=== PATIENT | female | born 1990 | race Caucasian/White ===

== ENCOUNTER 2020-09-19 13:48 | Outpatient (CLI) | payer OTHER, SELFPAY ==
[2020-09-20 18:38] LABS: SARS-CoV-2 RNA PCR Negative
== END 2020-09-19 13:49 | disposition home or self-care (01) ==
LOC: CHSLAB 13:51
PROVIDERS: PCP Family Medicine; Visit Provider Family Medicine
DX: Z20.828 Contact with and (suspected) exposure to other viral communicable diseases (principal)
CPT/HCPCS: 87635; C9803; U0003

== ENCOUNTER 2022-10-01 12:47 | Outpatient (CLI) | payer OTHER, SELFPAY ==
[2022-10-01 13:56] LABS: Hematocrit 41.2 % (37.0-47.0); Hemoglobin 13.5 g/dL (12.0-15.0)
== END 2022-10-01 12:48 | disposition home or self-care (01) ==
LOC: ANHSURGERY 12:59
PROVIDERS: PCP Obstetrics & Gynecology; Visit Provider Obstetrics & Gynecology
DX: N92.0 Excessive and frequent menstruation with regular cycle (principal)
CPT/HCPCS: 36415; 85014; 85018

== ENCOUNTER 2022-10-09 00:46 | Day surgery (SDC) | payer OTHER, SELFPAY ==
[2022-09-28 14:56] VITALS: BMI 36.3
--- NOTE | 2022-09-28 15:05 | PC.NURSE ---
Report to the Outpatient Waiting Room, entrance under the green pavilion located off [facility], at time 11:30AM on date 10-09-22. Planned Procedure Time: 1:30PM. Time changes happen often and if your time is changed the preop area will call you the afternoon before. - You and your visitor will be asked to self-screen and do not enter if you have any COVID symptoms. - Only one visitor is requested with a max of two and NO children visitors are allowed at this time. - The patient visitor may be requested to leave or wait in car when not with patient due to distancing restrictions. - A mask is optional within the hospital. Patients may have clear liquids (water, carbonated beverages, clear teas, apple juice) until 3 hours prior to surgery (10:30AM) with a maximum of 20 ounces. - No food from midnight until time of surgery Take the following medications with a SIP of water the morning of surgery: N/A Medications to discontinue per physician N/A Please no make-up, nail sudanese, hairspray, perfume, deodorant, or body powder the day of surgery. No jewelry (including any body piercings) or valuables the day of surgery, leave them at home. Please take a shower or bath the night before, or the morning of, surgery with an antibacterial soap. Wear comfortable, loose fitting clothing. - Jewelry must be removed prior to entering the operating room. Rings and piercings that are not removed may be cut off. - The hospital will not accept responsibility for valuables. - Please leave all valuables, including medications, at home the day of surgery. If you are going home after surgery, a licensed city driver must drive you home. - NO public transportation without another adult if you receive anesthesia. - We recommend that an adult stay with you for 24 hours following discharge. - We also recommend that you do not drive, make important decision, drink alcoholic beverages, or take any drugs that were not prescribed by your health care provider for at least 24 hours after your discharge time. Follow any additional instructions given to you from your surgeon. If you or anyone in your household have experienced Covid symptoms in the past week, please notify your surgeon or the nurse liaison at the phone number below for possible testing. Telephone instructions given to PATIENT and asked if any additional questions and then verbalized understanding. Patient advised to call surgeon office or pre surgery nurse liaison [phone] if any additional questions.
--- NOTE | 2022-10-07 06:40 | PM.IMHP ---
H&P: HPI History of Present Illness Date/Time: 10/07/22 06:40 Chief Complaint: excessive vaginal bleeding Narrative: this is a 32-year-old 2 para 2 status post tubal ligation who has continued heavy vaginal bleeding. She is admitted for hysteroscopy/ dilatation and curettage /Violet ablation. Risks and benefits reviewed in great detail. She read the [employer] handout entitled hysteroscopy as well as dilatation curettage along with the Violet handout. She had all questions answered and asked to proceed PMFSH Past Medical History Medical History Depression Surgical History Surgical History History of tubal ligation Family History Family History Father No problems noted. Mother CHF (congestive heart failure) Brain tumor Social History Social History Years smoked: 15 Smoking status: Former smoker Tobacco type: cigarettes Second hand tobacco smoke exposure: No Alcohol use details: OCCASSIONAL Substance use: current Substance use type: marijuana Last use: 09-28-22 Additional living arrangements comments: . 2 Children. Currently unemployed. Gender identity (if verbalized by the patient): Female Spiritual care concerns: No Meds Home Medications and Allergies Home Medications Medication Instructions Recorded Confirmed Type No Home Medications 09/28/22 09/28/22 History Allergies Allergy/AdvReac Type Severity Reaction Status Date / Time latex Allergy Severe BURNING Verified 09/28/22 14:55 iodine Allergy Intermediate Dryness Verified 09/28/22 14:55 and cracking ondansetron [Zofran] Allergy Intermediate Vomiting Verified 09/28/22 14:55 adhesive tape Allergy Mild redness Verified 09/28/22 14:55 codeine Allergy Unknown Unknown Verified 09/28/22 14:55 OTHOTRICYCLIN Allergy Intermediate OVERLY Uncoded 09/28/22 14:53 EMOTIONAL Exam Const: General: cooperative, healthy appearing, comfortable and overweight Orientation/consciousness: oriented to person, oriented to place and oriented to time HENMT: Head: normal to inspection Resp: Effort & Inspection: normal respiratory effort Cardio: Rate: regular rate Rhythm: regular rhythm Heart sounds: S1 normal heart sound present and S2 normal heart sound present GI: Inspection: normal to inspection Auscultation: normal bowel sounds : External Female Exam: normal external appearance Speculum Exam - Vagina: normal appearance of the vagina Speculum Exam - Cervix: normal appearance of the cervix Bimanual exam- vagina & uterus: enlarged Bimanual Exam- Adnexa, other: normal adnexae Assessment and Plan Assessment and plan (1) Excessive vaginal bleeding: Code(s): N93.9 - Abnormal uterine and vaginal bleeding, unspecified Status: Acute Plan hysteroscopy/ dilatation curettage/ Violet ablation
--- NOTE | 2022-10-09 07:06 | WPDHPUPDATE1 ---
History and Physical Update Update Date/Time: 10/09/22 07:06 History and Physical has been reviewed, including an updated exam of the patient. There are NO changes in the patient's condition. Risks, benefits, and alternatives have been discussed and questions answered. Patient agrees to proceed with procedure.
[2022-10-09 09:52] VITALS: BP 124/83; PULSE 84; RESP 20; TEMP 36.8; O2SAT 100
[2022-10-09] MEDS: ACETAMINOPHEN 500 MG TABLET 1000 MG PO (10:16)
[2022-10-09] MEDS: LACTATED RINGERS 1,000 ML 30 ML IV CONT (10:20)
--- NOTE | 2022-10-09 11:13 | WPDANESEPPF ---
Anes - Initial Pre Proc Eval Procedure: Operation Date: 10/09/22 11:30 Proposed Procedures p Hysteroscopy Dilation and Curettage, Violet Endometrial Ablation - Norman Gonzáles MD Date/Time: 10/09/22 11:13 Surgeon: Norman Gonzáles MD Pre Op Diagnosis: Heavy Bleeding Patient Data Age: 32 Gender: F Height: 1.63 m Weight: 96 kg Last Vital Signs Temp 36.8 C 10/09/22 09:52 Pulse 84 10/09/22 09:52 Resp 20 10/09/22 09:52 BP 124/83 10/09/22 09:52 Pulse Ox 100 10/09/22 09:52 O2 Del Method Room Air 10/09/22 09:52 Allergies Allergy/AdvReac Type Severity Reaction Status Date / Time latex Allergy Severe RED BUMPS Verified 10/09/22 09:53 ON SKIN/SKIN DRIES AND CRACKS codeine Allergy Intermediate immediate Verified 10/09/22 09:53 vomiting ethinyl estradiol Allergy Intermediate extreme Verified 10/09/22 09:53 [From Ortho Tri-[facility]en LO mood swings (28)] iodine Allergy Intermediate skin Verified 10/09/22 09:53 dryness and cracking norgestimate Allergy Intermediate extreme Verified 10/09/22 09:53 [From Ortho Tri-[facility]en LO mood swings (28)] ondansetron [Zofran] Allergy Intermediate Vomiting Verified 10/09/22 09:53 adhesive tape Allergy Mild redness at Verified 10/09/22 09:53 site Home Medications Medication Instructions Recorded Confirmed Type hydrocodone 5 mg-acetaminophen 325 1 tablet PO Q4H PRN pain #20 tabs 10/09/22 Rx mg tablet Patient hx anesthesia problems: other (slow to awaken) Family hx anesthesia problems: none Results Review: All pre-operative results and documents have been reviewed as part of the pre-operative evaluation. [facility] Past Medical History Medical History Depression Surgical History Surgical History History of tubal ligation Family History Family History Father No problems noted. Mother CHF (congestive heart failure) Brain tumor Social History Social History Years smoked: 15 Smoking status: Former smoker Tobacco type: cigarettes Second hand tobacco smoke exposure: No Alcohol use details: OCCASSIONAL Substance use: current Substance use type: marijuana Last use: 09-28-22 Living arrangements: with family Additional living arrangements comments: . 2 Children. Currently unemployed. Occupation/Education: unemployed Gender identity (if verbalized by the patient): Female Spiritual care concerns: No Anes - Eval Final PreProcedure Day of Procedure 10/09/22 11:13 Patient weight: obese Heart: regular rate and rhythm Lungs: clear to auscultation Airway: Mallampati scale class 1 Neurological: alert and oriented Last oral intake: >/= 8 hours ASA classification: II Emergent: no Anesthetic plan: proceed Anesthesia type and monitoring: general GIVS and standard monitoring Results Review: All pre-operative results and documents have been reviewed as part of the pre-operative evaluation. Informed Consent: The patient's anesthetic plan and its attendant risks and benefits were discussed with the patient/family/POA. Questions were solicited and answers provided to the satisfaction of the patient/family/POA.
[2022-10-09] MEDS: LIDOCAINE HCL 1% PF 30 ML VIAL 10 ML INFILTRATE (11:53)
--- NOTE | 2022-10-09 11:58 | W.PM.PROC2 ---
Procedure Note - Detailed Date of Procedure 10/09/22 Pre-op Diagnosis Heavy Bleeding Post-op Diagnosis Same (Same with uterine polyp) Procedure Performed hysteroscopy/ polypectomy/dilatation curettage /Violet ablation Surgeon Norman Gonzáles MD Anesthesia MAC and Local Indications to 32-year-old female with excessive heavy bleeding refractory medical therapy Findings uterus sounded 8.5cm. A small polyp was seen at the fundus on patient's left Description of Procedure patient was prepped draped in the normal sterile fashion placed in dorsal lithotomy position. Under excellent IV sedation weighted speculum placed in posterior fornix vagina. Anterior lip of the cervix grasped with single-tooth tenaculum. 2.5cc 1% xylocaine anesthesia placed at 2, 4, 8, 10:00 a.m. of the cervix. Uterus sounded to8.5cm. Serial dilatation with fragmented dilators performed followed passes the 5mm visualizing hysteroscope using normal saline as visualizing medium. Each fallopian tube os could be seen. There was a small polyp at the uterine fundus which was plucked with the polyp forceps. The uterus was then scraped over the entire 360? until good grating sound was heard. The instruments were withdrawn and the Violet instrument placed in the uterus. The uterus was burned [id number]. Hysteroscope was then reinserted and a good burn was noted in photo documentation undertaken. The instruments were withdrawn. The patient went to recovery in satisfactory condition. All sponge, needle, instrument counts were correct. There were no immediate complications Estimated Blood Loss 5 Drains No Packing No Pathology Yes Complications No immediate complications Condition Stable Disposition PACU
[2022-10-09 12:01] VITALS: BP 107/69; PULSE 63; RESP 16; O2SAT 97
[2022-10-09 12:30] VITALS: BP 157/77; PULSE 65; RESP 20; O2SAT 100
[2022-10-09 12:45] VITALS: BP 142/82; PULSE 63; RESP 18
== END 2022-10-09 12:53 | disposition home or self-care (01) ==
PROVIDERS: Visit Provider Obstetrics & Gynecology
PROC: 0U5B8ZZ Destruction of Endometrium, Via Natural or Artificial Opening Endoscopic (ICD-10-PCS; CPT 58563; principal; 2022-10-09 11:30)
DX: N93.9 Abnormal uterine and vaginal bleeding, unspecified (principal); N84.0 Polyp of corpus uteri; Z87.891 Personal history of nicotine dependence; E66.9 Obesity, unspecified; Z68.36 Body mass index [BMI] 36.0-36.9, adult
CPT/HCPCS: 58563; 88305; A9270; J1100; J1885; J2250; J2405; J2704; J3010; J7030; J7120

== ENCOUNTER 2023-07-27 09:28 | Outpatient (CLI) | payer OTHER, SELFPAY ==
[2023-07-27 09:41] LABS: Basophils Absolute Auto 0.04 K/mm3 (0.00-0.10); Basophils Percent Auto 0.6 % (0.0-1.0); Eosinophils Absolute Auto 0.36 K/mm3 (0.02-0.50); Eosinophils Percent Auto 5.7 % (1.0-6.0); Hematocrit 43.7 % (35.0-49.0); Hemoglobin 14.5 g/dL (12.0-15.0); Immature Granulocyte Absolute 0.01 K/mm3 (0.00-0.00); Immature Granulocyte Percent A 0.2 % (0.0-0.0); Lymphocytes Absolute Auto 2.16 K/mm3 (1.10-4.50); Mean Corpuscular HGB Conc 33.2 g/dL (32.0-36.0); Mean Corpuscular Hemoglobin 30.1 pg (27.0-31.0); Mean Corpuscular Volume 90.7 fL (78.0-102.0); Mean Platelet Volume 9.6 fl (9.2-11.8); Monocytes Absolute Auto 0.63 K/mm3 (0.10-0.90); Monocytes Percent Auto 9.9 % (2.0-11.0); Neutrophils Absolute Auto 3.2 K/mm3 (1.7-7.2); Neutrophils Percent Auto 49.6 % (50.0-70.0); Platelet Count Result 310 K/mm3 (150-420); Red Blood Count 4.82 M/mm3 (4.20-5.40); Red Cell Distribution Width 12.5 % (11.6-14.4); White Blood Count 6.4 K/mm3 (4.8-10.8)
[2023-07-27 09:52] LABS: Hemoglobin A1C 5.1 % (<5.7)
[2023-07-27 10:33] LABS: Alanine Aminotransferase 30 U/L (14-59); Albumin Level 3.8 g/dL (3.4-5.0); Alkaline Phosphatase 53 U/L (46-116); Anion Gap 8 mmol/L (8-16); Aspartate Amino Transferase 13 U/L (15-37); Bilirubin,Total 0.3 mg/dL (0.00-1.00); Blood Urea Nitrogen 12 mg/dL (7-18); Calcium 9.7 mg/dL (8.5-10.1); Carbon Dioxide 29 mmol/L (21-32); Chloride 104 mmol/L (98-108); Cholesterol 208 mg/dL (0-200); Estimated Glomerular Filt Rate > 60; Free T4 Free Thyroxine 1.06 ng/dL (0.76-1.46); Glucose 90 mg/dL (70-99); HDL Direct 54 mg/dL (40-60); Iron 50 ug/dL (50-170); LDL Cholesterol Calculated 139 mg/dL (<130); Magnesium 2.1 mg/dL (1.8-2.4); Osmolality Calculated 291 mOsm/kg (285-295); Potassium 4.3 mmol/L (3.5-5.1); Sodium 141 mmol/L (136-145); Thyroid Stimulating Hormone 0.82 uIU/mL (0.36-3.74); Total Protein 7.1 g/dL (6.4-8.2); Triglycerides 77 mg/dL (0-150); Vitamin B12 270 pg/mL (193-986)
[2023-07-30 12:01] LABS: Vitamin D 25 Hydroxy 19 ng/mL (30-100)
== END 2023-07-27 09:29 | disposition home or self-care (01) ==
PROVIDERS: PCP Nurse Practitioner Family; Visit Provider Nurse Practitioner Family
DX: E88.810 Metabolic syndrome (principal); Z79.899 Other long term (current) drug therapy; Z13.6 Encounter for screening for cardiovascular disorders; R53.83 Other fatigue
CPT/HCPCS: 36415; 80053; 80061; 82306; 82607; 83036; 83540; 83735; 84439; 84443; 85025